=== PATIENT | female | born 1985 | race Caucasian/White ===

== ENCOUNTER 2016-09-11 06:52 | Inpatient (IN) | payer MEDICAID ==
[2016-09-11 06:57] VITALS: BMI 32.5
[2016-09-11] MEDS: Lactated Ringer's 1,000 ML IV SCH ×3 (07:15→20:38)
[2016-09-11 08:08] LABS: BASO % 0.5 % (0.0-2.0); EOS # 0.2 K/uL (0.0-0.7); EOS % 1.7 % (0.0-4.0); HEMATOCRIT 36.7 % (34.0-47.0); LYMPH % 20.8 % (20.0-40.0); MEAN CELL VOLUME 87.2 fl (81.0-99.0); MEAN CORPUSCULAR HGB CONC 33.2 g/dL (33.0-37.0); MEAN PLATELET VOLUME 9.2 fl (7.2-11.7); MONO # 0.6 K/uL (0.0-0.8); MONO % 6.2 % (0.0-10.0); NEUT % 70.8 % (50.0-75.0); RED CELL DISTRIBUTION WIDTH 15.5 % (11.5-14.5); WHITE BLOOD COUNT 9.8 K/uL (4.8-10.8)
[2016-09-11] MEDS ORDERED: Oxytocin 30 units/LR 500ML 30 U/500 ML BAG IV ONE ×2 (08:08→11:24)
[2016-09-11 08:10] VITALS: BP 123/73; PULSE 88; RESP 16; TEMP 98
[2016-09-11] MEDS ORDERED: ePHEDrine 50 mg/ml Inj ONE (08:35)
[2016-09-11] MEDS ORDERED: Morphine 1 mg/ml preservative-free Inj(Duramorph) ONE (08:35)
[2016-09-11] MEDS ORDERED: Phenylephrine 10 mg/ml Inj ONE (08:36)
[2016-09-11] MEDS ORDERED: Sodium Chloride 0.9% 10 ML IV ONE (08:37)
[2016-09-11] MEDS ORDERED: ceFAZolin 2 GM in Sodium Chloride 0.9% 100 ML IVPB ONE (08:40)
--- NOTE | 2016-09-11 10:11 | OBADHP ---
Datetime: 09/11/2016 07:06 Admit Comment, IP Provider: 30 YO F c section x2 @ 39 weeks presents for a repeat scheduled C Section. at 9 am today on 09/11/16. Patient has been NPO since last night. PT is RH negative and had her Rho Pat on 06/29/16. - Pt denies LOF, CTX, VB. - Has not beeen taking her PNV everyday becuase of her nausea POBHX: 2 previous C Sections, 1 ectopic , hyperemisis gravidarum PSH: Tummy tuck in [facility] in 2010 Allergies: NKDA, Milk causes itching Med: PNV inconsistently and Citrazine HBsAg: neg GBS: neg Social Hx: Denies alcohol and drug use A/P: 30 YO F is here for a repeat section at 9 am. - Initiate C section protocol - NPO - Anaesthesia consult - CBC, Type and screen, RPR - Ancef 2 gm - Lactated ringers 1 L bolus - Continuous monitoring Santos Holland PGY-1 OB[facility] ADDENDUM: pt seen _ examined by me. agree w/ above. informed consent obtained for and transfusion(if indicated). Extremities - PN: Normal Abdomen - PN: Normal Lungs - PN: Normal Heart - PN: Normal Thyroid - PN: Normal Neurologic - PN: Normal HEENT - PN: Normal (Annotations: Data stored by CPN on behalf of user) General - PN: Normal FHR - Baseline A Provider: 150 Comments, ACOG Physical Exam: Cephalic presentation confirmed w/ U/S Vital Signs Provider: Reviewed; Within Normal Limits IP Chief Complaint: Scheduled Section NICHD Variability Prov Fetus A: Moderate 6-25bpm NICHD Accel Fetus A IP Provider: [id number] FHR Category Provider Fetus A: Category I NICHD Decel Fetus A IP Provider: None Genitourinary Exam: Normal EGA AdmitDate IP: 39.0 IP Adm Impression: Term, intrauterine ; No Active Labor IP Admit Plan: Admit to unit; Initiate Section protocol Datetime: 08/30/2016 00:13 IP Chief Complaint Other: lower back pain Pelvic Type - PN: Adequate Back - PN: Abnormal Breast - PN: Not Done Contraction Comments Provider: no DTRs - PN: Normal
[2016-09-11] MEDS ORDERED: DiphenhydrAMINE 50 mg/ml Inj IVP PRN (10:28)
[2016-09-11] MEDS ORDERED: Oxycodone/Acetaminophen 5/325 mg Tab PO PRN (11:16)
[2016-09-12] MEDS: Lactated Ringer's 1,000 ML IV SCH (04:00)
[2016-09-12 06:51] LABS: BASO # 0.1 K/uL (0.0-0.2); BASO % 0.7 % (0.0-2.0); EOS # 0.2 K/uL (0.0-0.7); EOS % 1.6 % (0.0-4.0); HEMATOCRIT 33.9 % (34.0-47.0); LYMPH # 2.5 K/uL (1.0-4.3); LYMPH % 23.3 % (20.0-40.0); MEAN CELL VOLUME 87.2 fl (81.0-99.0); MEAN CORPUSCULAR HGB CONC 33.2 g/dL (33.0-37.0); MEAN PLATELET VOLUME 9.3 fl (7.2-11.7); MONO # 0.7 K/uL (0.0-0.8); MONO % 6.7 % (0.0-10.0); NEUT # 7.2 K/uL (1.8-7.0); NEUT % 67.7 % (50.0-75.0); RED CELL DISTRIBUTION WIDTH 15.9 % (11.5-14.5); WHITE BLOOD COUNT 10.7 K/uL (4.8-10.8)
[2016-09-12] MEDS: Oxycodone/Acetaminophen 5/325 mg Tab PO PRN ×2 (08:00→18:06)
--- NOTE | 2016-09-12 11:07 | OBPPN ---
Datetime: 09/12/2016 05:56 PP Pain Prov: Within normal limits PP Nausea Prov: Denies PP Flatus Prov: No PP BM Prov: No PP Breasts Prov: Normal PP Heart Prov: Normal PP Lungs Prov: Normal PP Abdomen/Uterus Prov: Normal PP Lochia Prov: Normal PP Vulva/Perineum Prov: Normal PP CVA Tenderness Prov: Normal PP Extremities Prov: Normal PP C/S Incision Prov: Normal PP Progress Prov: Normal PP Comments Phys Exam Prov: uterus: firm above umbilicus Incision: dressing intact PP Impression Prov: Normal progression PP Plan Prov: Continue present management PP Progress Note Prov: 31 y/o seen and examined at bedside. Patient s/p c section 17 hours ag o had uneventful overnight. Patient reports mild pelvic pain controlled w/ pain meds. No Ambulating yet. Breast/bottle feeding w/o difficulty. Tolerating PO diet well. Lochia is less than menses in volume. thrasher present 1100 ml clear urine w/ no blood noted. Denies flatus, not bowel movement ye t, but + BS. Denies fevers, chills, n/v/d, CP/SOB, lightheadedness and calf pain. Assessment: 31 y/o s/p C section on 09/11/2016 @ 10:18 am tolerating pain w/ medication, tolerating oral intake, adequate urine output, doing well on POD1. Plan: Ibuprofen 600 mg 1 tab Q6h PO prn for mild pain. -Percocet 5/325 mg 1-2 tabs PO Q6h prn for mod/severe pain. Encourage breast feeding and ambulation. Cecille Rivas PGY1 OB Hospitalist on-call....Pt seen and examined by me on rounds this morning. Agree with PGY1 note . OLENA Addendum: O neg -Rhogam given last night Vital Signs Provider PP: Reviewed; Within Normal Limits
--- NOTE | 2016-09-13 11:02 | OBPPN ---
Datetime: 09/13/2016 05:31 PP Pain Prov: Within normal limits PP Nausea Prov: Denies PP Flatus Prov: No PP BM Prov: No PP Breasts Prov: Normal PP Heart Prov: Normal PP Lungs Prov: Normal PP Abdomen/Uterus Prov: Normal PP Lochia Prov: Normal PP Vulva/Perineum Prov: Normal PP CVA Tenderness Prov: Normal PP Extremities Prov: Normal PP C/S Incision Prov: Normal PP Progress Prov: Normal PP Comments Phys Exam Prov: Uterus: firm at level umbilicus incision: C/D/I. Debra intact. no erythema PP Impression Prov: Normal progression PP Plan Prov: Continue present management PP Progress Note Prov: 31 y/o seen and examined at bedside. Patient had uneventful overnight. Patient reports mild pelvic pain controlled w/ pain meds. OOA Ambulating w/o dizziness. Breast/bot tle feeding w/o difficulty. Tolerating PO diet well. Lochia is less than menses in volume. Voiding frequent w/ no blood noted. Reports no flatus, not bowel movement yet, but there is + BS. Denies fevers, chills, n/v/d, CP/SOB, lightheadedness and calf pain. Assessment: 31 y/o s/p C section on 09/11/2016 @ 10:18 am tolerating pain w/ medication, tolerating oral intake, adequate urine output, doing well on POD2. Plan: Ibuprofen 600 mg 1 tab Q6h PO prn for mild pain. -Percocet 5/325 mg 1-2 tabs PO Q6h prn for mod/severe pain. Encourage breast feeding and ambulation. Cecille Rivas PGY1 The patient was seen with resident I agree with the note, encourage ambulation, analgesia and anti cipate discharge in a.m. Vital Signs Provider PP: Reviewed; Within Normal Limits
[2016-09-13] MEDS ORDERED: Oxycodone/Acetaminophen 5/325 mg Tab PO PRN (17:35)
== END 2016-09-14 12:40 | disposition home or self-care (01) | DRG 371 ==
LOC: H.EROB2 06:52 → H.L&D 07:10 → H.OB/GYN 14:11
PROVIDERS: ADMIT Obstetrics & Gynecology; ATTEND Obstetrics & Gynecology
PROC: 10D00Z1 Extraction of Products of Conception, Low, Open Approach (ICD-10-PCS; principal; 2016-09-11)
PROC: 4A1HXCZ Monitoring of Products of Conception, Cardiac Rate, External Approach (ICD-10-PCS; 2016-09-11)
DX: O34.211 Maternal care for low transverse scar from previous cesarean delivery (principal); E66.01 Morbid (severe) obesity due to excess calories; Z37.0 Single live birth; N85.8 Other specified noninflammatory disorders of uterus; Z3A.39 39 weeks gestation of pregnancy; O99.214 Obesity complicating childbirth